=== PATIENT | male | born 1950 | race Two or more races ===

== ENCOUNTER 2017-11-16 12:07 | Day surgery (SDC) | payer BC ==
[2017-11-16] MEDS ORDERED: FENTAnyl 50 MCG/ML VIAL (16:29)
[2017-11-16] MEDS ORDERED: MIDAZOLAM 1 MG/ML 2 ML INJ ×2 (16:29)
== END 2017-11-17 10:59 | disposition home or self-care (01) ==
LOC: GIL 12:07
DX: Z12.11 Encounter for screening for malignant neoplasm of colon (principal); D12.6 Benign neoplasm of colon, unspecified; K62.1 Rectal polyp; K57.90 Diverticulosis of intestine, part unspecified, without perforation or abscess without bleeding
CPT/HCPCS: 45380; 88305